=== PATIENT | female | born 1960 | race Caucasian/White ===

== ENCOUNTER 2022-01-04 15:09 | Emergency (ER) | payer MEDICARE, SELFPAY ==
--- NOTE | 2022-01-04 15:21 | ED.URI ---
HPI - URI/Sore Throat General Chief Complaint: Upper Respiratory Infection Stated Complaint: uri Time Seen by Provider: 01/04/22 15:28 Source: patient and RN notes reviewed Mode of arrival: ambulatory Limitations: no limitations History of Present Illness HPI Narrative: 61-year-old female presented for complaint of sinus pressure and congestion, headache, and cough for 3 days. She is visiting from [place], stating she called her PCP who recommended an antibiotic. Patient has been taking OTC meds for symptoms. Denies cp, palpitations, sob, wheezing, n/v/d/f/c. Hx Afib, HTN. MD elicited complaint: cough Related Data Home Medications Medication Instructions Recorded Confirmed apixaban 5 mg tablet (Eliquis) 5 mg PO BID 01/04/22 01/04/22 cyclobenzaprine 10 mg tablet 10 mg PO TID PRN Restless Leg(S) 01/04/22 01/04/22 diphenhydramine HCl 25 mg capsule 25 mg PO HS PRN Insomnia 01/04/22 01/04/22 (Benadryl) ergocalciferol (vitamin D2) 25,000 25,000 unit PO WEEKLY 01/04/22 01/04/22 unit capsule fluticasone furoate 200 1 inh inhalation Q24H 01/04/22 01/04/22 mcg-vilanterol 25 mcg/dose inhalation powder (Breo Ellipta) magnesium 1 tablet PO DAILY 01/04/22 01/04/22 melatonin 5 mg tablet 5 mg PO HS 01/04/22 01/04/22 tramadol 50 mg tablet 50 mg PO Q6H PRN Pain 01/04/22 01/04/22 verapamil 300 mg capsule 24hr 300 mg PO HS 01/04/22 01/04/[address],ext[address]release Allergies Allergy/AdvReac Type Severity Reaction Status Date / Time Penicillins Allergy Hives Verified 01/04/22 15:44 Sulfa (Sulfonamide Allergy Hives Verified 01/04/22 15:44 Antibiotics) tree nut Allergy Anaphylaxis Verified 01/04/22 15:44 Review of Systems Review of Systems: CONSTITUTIONAL: Denies malaise, chills, sweats, fever EYES: Denies visual changes, redness, or discharge ENT: Reports rhinorrhea, congestion, sinus pain CARDIOVASCULAR: Denies chest pain, palpitations, edema RESPIRATORY: Reports cough, post nasal drainage. Denies dyspnea GASTROINTESTINAL: Denies abdominal pain, nausea, vomiting, diarrhea SKIN: Denies rash or itching MUSCULOSKELETAL:Denies myalgia NEUROLOGIC: Reports headache Exam Narrative: GENERAL: Ill-appearing, nontoxic EYES: conjunctivae clear ENT: Mucous membranes moist. TM pearly luke with dull light reflex bilaterally; no tragal tenderness. Oropharynx erythematous without lesions or exudate, no drooling, no hoarseness, no trismus, uvula midline. CHEST: Frequent moist nonproductive cough. Clear to auscultation, breath sounds equal. No wheezing, rhonchi, rales, or stridor. No respiratory distress, speaks in full sentences. HEART: Regular rate and rhythm. No murmur heard. SKIN: Warm, dry, no rash. NEURO: Alert and oriented x3. PSYCH: Normal mood and affect Course Course Emergency Course: Patient is aware of diagnosis, understands and agrees to treatment plan. Anticipatory guidance given. Patient agrees to follow-up as directed and is aware of reasons to seek care at the emergency department. Portions of this record may have been created with voice recognition software Level of Care: Express Care Visit Vital Signs Vital signs: Vital Signs Temperature 100.0 F H 01/04/22 15:27 Pulse Rate 93 01/04/22 15:27 Respiratory Rate 16 01/04/22 15:27 Blood Pressure 148/86 H 01/04/22 15:27 Pulse Oximetry 98 01/04/22 15:27 Oxygen Delivery Room Air 01/04/22 15:27 Temperature 100.0 F H 01/04/22 15:27 Pulse Rate 93 01/04/22 15:27 Respiratory Rate 16 01/04/22 15:27 Blood Pressure 148/86 H 01/04/22 15:27 Pulse Oximetry 98 01/04/22 15:27 Oxygen Delivery Room Air 01/04/22 15:27 reviewed MDM - URI/Sore Throat MDM Narrative Medical decision making narrative: COVID-positive, the results were reviewed with patient. She is advised on supportive treatments, quarantine, and contact her PCP. Verbalizes understanding. Differential Diagnosis Differential diagnosis: Likely upper respiratory
[2022-01-04 15:27] VITALS: BP 148/86; PULSE 93; RESP 16; TEMP 37.8; O2SAT 98
== END 2022-01-04 16:04 | disposition home or self-care (01) ==
PROVIDERS: Emergency Provider Nurse Practitioner Family
DX: U07.1 COVID-19 (principal); I48.91 Unspecified atrial fibrillation; I10 Essential (primary) hypertension
CPT/HCPCS: 87426; 87804; 99203; C9803; G0463